=== PATIENT | male | born 1985 | race Caucasian/White ===

== ENCOUNTER 2019-05-22 10:50 | Outpatient (CLI) | payer OTHER, SELFPAY ==
[2019-05-22 11:00] VITALS: BP 122/78; PULSE 68; RESP 20; TEMP 36.9; O2SAT 95
[2019-05-22 11:45] VITALS: BP 123/77; PULSE 70; RESP 20
[2019-05-22 12:15] VITALS: BP 122/74; PULSE 72; RESP 20
== END 2019-05-22 12:15 | disposition home or self-care (01) ==
PROVIDERS: Visit Provider Internal Medicine Infectious Disease
DX: I38 Endocarditis, valve unspecified (principal)
CPT/HCPCS: 96365; J0878

== ENCOUNTER 2019-05-23 10:40 | Outpatient (CLI) | payer OTHER, SELFPAY ==
[2019-05-23 11:10] VITALS: BP 135/79; PULSE 85; RESP 18; O2SAT 99
[2019-05-23 12:35] VITALS: BP 141/88; PULSE 86; RESP 18; O2SAT 100
== END 2019-05-23 12:38 | disposition home or self-care (01) ==
LOC: INF 10:46
PROVIDERS: Visit Provider Internal Medicine Infectious Disease
DX: I38 Endocarditis, valve unspecified (principal)
CPT/HCPCS: 96365; 96367; J0878

== ENCOUNTER 2019-05-24 10:53 | Outpatient (CLI) | payer OTHER, SELFPAY ==
[2019-05-24 12:39] VITALS: BP 132/80; PULSE 85; RESP 18; TEMP 36.7; O2SAT 97
--- NOTE | 2019-05-24 16:39 | PC.NURSE ---
05/24/19 1155 Attempts x4 total, 2 per Meir,MEKHI and 2 per MEKHI Neal, to start IV for Cubicin and Rocephin IV infusion. Unable to obtain IV access. Pt does not want to be stuck again for IV access and wants to change antibiotics to IM/oral. Will notify Dr. Clemens of pt wishes. [address] Clemens via phone regarding pt wishes to discontinue IV antibiotics. Order given to start Bactrim DS 1 tablet po BID for 3 months, and Invanz 1 gram IM daily x 4 weeks. 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 Pt will receive Invanz 1 gram IM per [facility] outpatient infusion dept.
== END 2019-05-24 13:10 | disposition home or self-care (01) ==
LOC: INF 10:53
PROVIDERS: Visit Provider Internal Medicine Infectious Disease
DX: I38 Endocarditis, valve unspecified (principal)
CPT/HCPCS: 96372; J1335

== ENCOUNTER 2019-05-25 11:10 | Outpatient (CLI) | payer OTHER, SELFPAY ==
[2019-05-25 11:29] VITALS: BP 143/95; PULSE 88; RESP 20; TEMP 36.4; O2SAT 100
[2019-05-25 11:30] VITALS: BP 143/95; PULSE 88; RESP 20; TEMP 36.4; O2SAT 100
--- NOTE | 2019-05-25 11:30 | PC.NURSE ---
Invanz 1 Gram IM given, 500mg bilateral gluteus juliette. pt hermila well. no problems noted.
== END 2019-05-25 11:30 | disposition home or self-care (01) ==
LOC: INF 11:10
PROVIDERS: Visit Provider Internal Medicine Infectious Disease
DX: I38 Endocarditis, valve unspecified (principal)
CPT/HCPCS: 96372; 96374; J1335

== ENCOUNTER 2019-05-26 11:06 | Outpatient (CLI) | payer OTHER, SELFPAY ==
[2019-05-26 11:30] VITALS: BP 117/65; PULSE 76; RESP 18
== END 2019-05-26 11:50 | disposition home or self-care (01) ==
LOC: INF 11:07
PROVIDERS: Visit Provider Internal Medicine Infectious Disease
DX: I38 Endocarditis, valve unspecified (principal)
CPT/HCPCS: 96372; J1335

== ENCOUNTER → 2019-05-27 10:56 | Outpatient (CLI) | payer OTHER, SELFPAY ==
[2019-05-27 11:07] VITALS: BP 122/81; PULSE 83; RESP 16; TEMP 36.7; O2SAT 99
== END ==
PROVIDERS: Visit Provider Internal Medicine Infectious Disease
DX: I38 Endocarditis, valve unspecified (principal)
CPT/HCPCS: 96372; J1335

== ENCOUNTER 2019-05-28 11:03 | Outpatient (CLI) | payer OTHER, SELFPAY ==
[2019-05-28 11:25] VITALS: BP 147/89; PULSE 103; RESP 18; O2SAT 99
[2019-05-28 11:38] LABS: Anion Gap 15.1 mEq/L (5-15); Blood Urea Nitrogen 18 mg/dL (7-18); Calcium 9.2 mg/dL (8.5-10.1); Carbon Dioxide 25 mmol/L (21.0-32.0); Chloride 101 mmol/L (98-107); Creatinine,Serum 1.09 mg/dL (0.70-1.30); Estimated Glomerular Filt Rate 78 ml/min (>60); GFR (African American) 94 ML/MIN (>60); Glucose 116 mg/dL (74-106); Potassium 4.1 mmoL/L (3.5-5.1); Sodium 137 mmol/L (136-145)
== END 2019-05-28 11:40 | disposition home or self-care (01) ==
LOC: INF 11:03
PROVIDERS: Internal Medicine Infectious Disease; Visit Provider Internal Medicine Infectious Disease
DX: I38 Endocarditis, valve unspecified
CPT/HCPCS: 80048; 96372; J1335

== ENCOUNTER 2019-05-29 11:10 | Outpatient (CLI) | payer OTHER, SELFPAY ==
[2019-05-29 11:25] VITALS: BP 133/92; PULSE 105; RESP 20; TEMP 36.7; O2SAT 97
== END 2019-05-29 11:45 | disposition home or self-care (01) ==
LOC: INF 11:10
PROVIDERS: Visit Provider Internal Medicine Infectious Disease
DX: I38 Endocarditis, valve unspecified (principal)
CPT/HCPCS: 96372; J1335

== ENCOUNTER → 2019-05-29 17:35 | Outpatient (CLI) | payer OTHER, SELFPAY ==
[2019-05-29 19:34] LABS: Amphetamine/Metha Screen,Urine Negative ng/mL (<1000); Barbiturates Screen,Urine Negative ng/mL (<200); Benzodiazepines Screen,Urine Negative ng/mL (<200); Cannabinoid Screen,Urine Negative ng/mL (<50); Cocaine Screen,Urine Negative ng/mL (<300); Methadone Screen,Urine Negative ng/mL (<300); Opiate Screen,Urine Positive ng/mL (<300); Phencyclidine Screen,Urine Negative ng/mL (<25)
== END ==
PROVIDERS: Visit Provider Nurse Practitioner Family
DX: G89.29 Other chronic pain (principal)
CPT/HCPCS: 80305

== ENCOUNTER 2019-05-30 09:15 | Outpatient (CLI) | payer OTHER, SELFPAY ==
[2019-05-30 09:37] VITALS: BP 141/95; PULSE 105; RESP 18; O2SAT 98
== END 2019-05-30 10:00 | disposition home or self-care (01) ==
LOC: INF 09:16
PROVIDERS: Visit Provider Internal Medicine Infectious Disease
DX: I38 Endocarditis, valve unspecified (principal)
CPT/HCPCS: 96372; J1335

== ENCOUNTER → 2019-06-03 10:48 | Outpatient (CLI) | payer OTHER, SELFPAY ==
[2019-06-03 10:58] VITALS: BP 131/84; PULSE 97; RESP 16; TEMP 36.6; O2SAT 98; BMI 26.6
== END ==
PROVIDERS: Visit Provider Internal Medicine Infectious Disease
DX: I38 Endocarditis, valve unspecified (principal)
CPT/HCPCS: 96372; J1335

== ENCOUNTER 2019-06-04 11:12 | Outpatient (CLI) | payer OTHER, SELFPAY ==
[2019-06-04 11:29] VITALS: BP 128/69; PULSE 90; RESP 18; TEMP 36.6; O2SAT 97
--- NOTE | 2019-06-04 11:44 | PC.NURSE ---
06/04/19 1129 Invanz 1gm IM given, 500mg L gluteus juliette, 500mg R gluteus juliette. Pt hermila well. No problems noted
== END 2019-06-04 11:40 | disposition home or self-care (01) ==
LOC: INF 11:12
PROVIDERS: Visit Provider Internal Medicine Infectious Disease
DX: I38 Endocarditis, valve unspecified (principal)
CPT/HCPCS: 96372; J1335

== ENCOUNTER 2019-06-05 11:12 | Outpatient (CLI) | payer OTHER, SELFPAY ==
[2019-06-05 11:23] VITALS: BP 150/100; PULSE 89; RESP 20; TEMP 37.2; O2SAT 97
[2019-06-05 11:25] VITALS: BP 150/100; PULSE 89; RESP 20; TEMP 37.2; O2SAT 97
== END 2019-06-05 11:26 | disposition home or self-care (01) ==
LOC: INF 11:12
PROVIDERS: Visit Provider Internal Medicine Infectious Disease
DX: I38 Endocarditis, valve unspecified (principal)
CPT/HCPCS: 96372; J1335

== ENCOUNTER 2019-06-06 10:56 | Outpatient (CLI) | payer OTHER, SELFPAY ==
[2019-06-06 11:30] VITALS: BP 150/98; PULSE 100; RESP 18; O2SAT 98
== END 2019-06-06 11:30 | disposition home or self-care (01) ==
LOC: INF 10:56
PROVIDERS: Visit Provider Internal Medicine Infectious Disease
DX: I38 Endocarditis, valve unspecified (principal)
CPT/HCPCS: 96372; J1335

== ENCOUNTER 2019-06-07 10:59 | Outpatient (CLI) | payer OTHER, SELFPAY ==
[2019-06-07 11:25] VITALS: BP 137/88; PULSE 93; RESP 18; TEMP 36.7; O2SAT 99
== END 2019-06-07 11:40 | disposition home or self-care (01) ==
LOC: INF 10:59
PROVIDERS: Visit Provider Internal Medicine Infectious Disease
DX: I38 Endocarditis, valve unspecified (principal)
CPT/HCPCS: 96372; J1335

== ENCOUNTER 2019-06-08 10:55 | Outpatient (CLI) | payer OTHER, SELFPAY ==
[2019-06-08 11:12] VITALS: BP 136/98; PULSE 108; RESP 18; TEMP 36.7; O2SAT 98
== END 2019-06-08 11:12 | disposition home or self-care (01) ==
LOC: INF 11:09
PROVIDERS: Visit Provider Internal Medicine Infectious Disease
DX: I38 Endocarditis, valve unspecified (principal)
CPT/HCPCS: 96372; J1335

== ENCOUNTER 2019-06-09 11:06 | Outpatient (CLI) | payer OTHER, SELFPAY ==
[2019-06-09 11:15] VITALS: BP 150/80; PULSE 89; RESP 18
== END 2019-06-09 11:16 | disposition home or self-care (01) ==
PROVIDERS: PCP Emergency Medicine; Visit Provider Internal Medicine Infectious Disease
DX: I38 Endocarditis, valve unspecified (principal)
CPT/HCPCS: 96372; J1335

== ENCOUNTER → 2019-06-10 11:06 | Outpatient (CLI) | payer OTHER, SELFPAY ==
[2019-06-10 11:17] VITALS: BP 117/82; PULSE 76; RESP 16
== END ==
PROVIDERS: PCP Emergency Medicine; Visit Provider Internal Medicine Infectious Disease
DX: I38 Endocarditis, valve unspecified (principal)
CPT/HCPCS: 96372; J1335

== ENCOUNTER 2019-06-11 11:07 | Outpatient (CLI) | payer OTHER, SELFPAY ==
[2019-06-11 11:09] VITALS: BP 154/107; PULSE 109; RESP 20; O2SAT 96
== END 2019-06-11 11:13 | disposition home or self-care (01) ==
LOC: INF 11:08
PROVIDERS: Visit Provider Internal Medicine Infectious Disease
DX: I38 Endocarditis, valve unspecified (principal)
CPT/HCPCS: 96372; J1335

== ENCOUNTER 2019-06-12 11:15 | Outpatient (CLI) | payer OTHER, SELFPAY ==
[2019-06-12 11:25] VITALS: BP 128/76; PULSE 87; RESP 20; TEMP 36.7; O2SAT 98
== END 2019-06-12 11:40 | disposition home or self-care (01) ==
LOC: INF 11:16
PROVIDERS: Visit Provider Internal Medicine Infectious Disease
DX: I38 Endocarditis, valve unspecified (principal)
CPT/HCPCS: 96372; J1335

== ENCOUNTER 2019-06-13 11:05 | Outpatient (CLI) | payer OTHER, SELFPAY ==
[2019-06-13 11:05] VITALS: BP 138/92; PULSE 98; RESP 18; O2SAT 98
== END 2019-06-13 11:20 | disposition home or self-care (01) ==
LOC: INF 11:09
PROVIDERS: Visit Provider Internal Medicine Infectious Disease
DX: I38 Endocarditis, valve unspecified (principal)
CPT/HCPCS: 96372; J1335

== ENCOUNTER 2019-06-14 11:10 | Outpatient (CLI) | payer OTHER, SELFPAY ==
[2019-06-14 11:30] VITALS: BP 129/74; PULSE 75; RESP 18; TEMP 36.6; O2SAT 98
== END 2019-06-14 11:30 | disposition home or self-care (01) ==
LOC: INF 11:10
PROVIDERS: Visit Provider Internal Medicine Infectious Disease
DX: I38 Endocarditis, valve unspecified (principal)
CPT/HCPCS: 96372; J1335

== ENCOUNTER 2019-06-15 12:45 | Outpatient (CLI) | payer OTHER, SELFPAY ==
[2019-06-15 13:25] VITALS: BP 147/93; PULSE 90; RESP 18; O2SAT 96
== END 2019-06-15 13:30 | disposition home or self-care (01) ==
LOC: INF 12:49
PROVIDERS: Visit Provider Internal Medicine Infectious Disease
DX: I38 Endocarditis, valve unspecified (principal)
CPT/HCPCS: 96372; J1335

== ENCOUNTER → 2019-06-16 22:07 | Outpatient (CLI) | payer OTHER, SELFPAY ==
[2019-06-16 22:21] VITALS: BP 146/74; PULSE 103; RESP 17; TEMP 36.8; O2SAT 99; BMI 28.6
--- NOTE | 2019-06-16 23:35 | PC.NURSE ---
pharmacy diabetes education coordinator consulted for medication order and administration. Invanz 1 gram with lidocaine 1%. 3.2 ml of lidocaine in Invanz 1 gram vial. 1.8 ml x2 syringes. Medication also verified with Regina Rios RN. Medication administered in (L) and (R) gluteus medius @ [id number]. Pt tolerated well.
== END ==
PROVIDERS: PCP Emergency Medicine; Visit Provider Internal Medicine Infectious Disease
DX: I38 Endocarditis, valve unspecified (principal)
CPT/HCPCS: 96372; G0463; J1335

== ENCOUNTER 2022-10-10 17:50 | Emergency (ER) | payer MEDICAID, SELFPAY ==
[2022-10-10 18:50] VITALS: BP 136/85; PULSE 89; RESP 16; TEMP 36.7; O2SAT 96; BMI 31.7
--- NOTE | 2022-10-10 19:31 | ED_ITS ---
Discharge Plan Disposition Chief Complaint: PAIN Referrals Follow up/Referrals: Provider,Keshia, [Primary Care Provider] - See instructions Discharge ED Provider: Kerry Odell Adult HPI General Chief complaint: PAIN Stated complaint: surg 10/07 hand pain Mode of Arrival: Ambulatory Source of Information: Patient Limitations: No Limitations Description of Symptoms (Recalled from ER Triage Doc. by RN): Pt reports having a carpel tunnel sx on his right hand . His complaint is 7 out of 10 burning pain in his right palm and he has ran out of pain medication they gave him after sx. Sx was performed by [facility]. Pt denies any drainage, fevers, or N/V/D. Pt reports taking off his bandage today because he thought he tore on of the stiches out. Pt has not contacted [place] [facility]. Related Data Allergies Allergy/AdvReac Type Severity Reaction Status Date / Time meloxicam [From Mobic] AdvReac Intermediate Abdominal Verified 06/12/19 14:32 Pain methocarbamol [From Robaxin] AdvReac Mild Abdominal Verified 06/12/19 14:32 Pain PFSH PFSH Disclaimer: The information contained in this section may have been updated after the patient was seen, as this information can be updated by other users. Social History Smoking Status: Current every day smoker tobacco type: cigarettes packs per day: 1 alcohol intake: never substance use type: former substance user, heroin, IV drugs and methamphetamine current occupational status: unemployed Travel in the last 8 weeks: None Medical Decision Making Vital Signs: 10/10/22 18:50 Temperature 98.1 F Temperature Source Oral Pulse Rate [Right Radial] 89 Respiratory Rate 16 Blood Pressure [Left Arm] 136/85 Blood Pressure Mean [Left Arm] 102 Blood Pressure Source [Left Arm] Automatic Cuff Blood Pressure Position [Left Arm] Sitting 02 Sat by Pulse Oximetry 96 Oxygen Delivery Method Room Air Critical Care Time Critical Care Time Attestation: On 10/10/22, the high probability of a clinically significant, sudden or life threatening deterioration of the following system(s) required my full and direct attention, intervention and personal management. The time I documented below is in addition to time spent performing reported procedures but includes the following listed in this critical care notation.
--- NOTE | 2022-10-10 20:15 | XR_ITS ---
PROCEDURE INFORMATION: Exam: XR Right Hand Exam date and time: 10/10/2022 8:13 PM Age: 37 years old Clinical indication: Prior surgery; Surgery date: 3-7 days post-operative; Surgery type: Patient had right hand surgery on (3 days ago). He has run out of pain medicine. He came to er to get more pain medicine he stated. TECHNIQUE: Imaging protocol: Radiologic exam of the Right hand. Views: 3 or more views. COMPARISON: No relevant prior studies available. FINDINGS: Bones/joints: Normal. No fracture or malalignment. Joint surfaces preserved. Soft tissues: Normal. IMPRESSION: Negative examination right hand.
--- NOTE | 2022-10-10 20:27 | HMH.EDGENADL ---
Discharge Plan Disposition Patient Disposition: Home, Self-Care Chief Complaint: PAIN Referrals Follow up/Referrals: Provider,Referral, [Primary Care Provider] - See instructions Clinical Impressions Clinical Impression: Post-op pain Instructions Patient Instructions: DI for Acute Pain -- Adult Discharge ED Provider: Joshua Russell General Adult HPI General Chief complaint: PAIN Stated complaint: surg 10/07 hand pain Time Seen by Provider: 10/10/22 20:27 Mode of Arrival: Ambulatory Source of Information: Patient and Medical Record Limitations: No Limitations Description of Symptoms (Recalled from ER Triage Doc. by RN): Pt reports having a carpel tunnel sx on his right hand . His complaint is 7 out of 10 burning pain in his right palm and he has ran out of pain medication they gave him after sx. Sx was performed [place] [facility]. Pt denies any drainage, fevers, or N/V/D. Pt reports taking off his bandage today because he thought he tore on of the stiches out. Pt has not contacted [facility]. History of Present Illness HPI narrative: pt with recent carpel tunnel surg rt wrist - has ongoing pain and used all pain meds - solo report reviewed Onset (ago): day(s) Location: upper extremity Severity: moderate Associated symptoms: denies other symptoms Related Data Allergies Allergy/AdvReac Type Severity Reaction Status Date / Time meloxicam [From Mobic] AdvReac Intermediate Abdominal Verified 06/12/19 14:32 Pain methocarbamol [From Robaxin] AdvReac Mild Abdominal Verified 06/12/19 14:32 Pain PFSH PFSH Disclaimer: The information contained in this section may have been updated after the patient was seen, as this information can be updated by other users. Social History Smoking Status: Current every day smoker tobacco type: cigarettes packs per day: 1 alcohol intake: never substance use type: former substance user, heroin, IV drugs and methamphetamine current occupational status: unemployed Travel in the last 8 weeks: None ROS Obtained: Yes All systems reviewed & no additional complaints except as documented Physical Exam General General appearance: alert Head Head exam: normocephalic Eye Eye exam: Present PERRL and EOMI ENT ENT exam: Present mucous membranes moist Neck Neck exam: Present trachea midline Respiratory Respiratory exam: Absent respiratory distress Cardiovascular Cardiovascular exam: Present regular rate Expanded Upper Extremity Exam Right: Forearm/Wrist exam: Present tenderness and other (no clinical evid of infection and sutures intact ); Absent full ROM or swelling Neuromotor exam: Normal wrist extension Vascular exam: Normal radial pulse Neurological Exam Neurological exam: Present alert, oriented X3 and CN II-XII intact Psychiatric Psychiatric exam: Present normal affect Skin Skin exam: Absent rash Medical Decision Making Medical Records Medical records reviewed: Yes I reviewed the patient's medical records. Solo Inquiry Pt receiving controlled substance: No Vital Signs: 10/10/22 18:50 Temperature 98.1 F Temperature Source Oral Pulse Rate [Right Radial] 89 Respiratory Rate 16 Blood Pressure [Left Arm] 136/85 Blood Pressure Mean [Left Arm] 102 Blood Pressure Source [Left Arm] Automatic Cuff Blood Pressure Position [Left Arm] Sitting 02 Sat by Pulse Oximetry 96 Oxygen Delivery Method Room Air Orders (Tests/Meds): ED MEDICATIONS Generic Name Dose Route Start Last Admin Trade Name Freq PRN Reason Stop Dose Admin Ketorolac Tromethamine 60 mg 10/10/22 20:23 Ketorolac 60mg/2ml Vial IM 10/10/22 20:24 ONCE ONE ORDERS Category Date Time Status XR hand RT min 3V Stat Exams 10/10/22 20:15 Taken Radiology Data #1: Image(s): Wrist Image Reviewed: Yes I reviewed the patient's radiology image Preliminary Findings: No Fracture Seen Medical Decision Narrative: pt
[2022-10-10 20:31] VITALS: BP 134/93; PULSE 78; RESP 14; TEMP 36.6; O2SAT 99
--- NOTE | 2022-10-10 20:39 | PC.NURSE ---
Right hand cleaned and wrapped with sterile 4x4, kerlex, and dimitri wrap.
== END 2022-10-10 20:39 | disposition home or self-care (01) ==
PROVIDERS: Emergency Provider Emergency Medicine
DX: G89.18 Other acute postprocedural pain (principal); M79.641 Pain in right hand
CPT/HCPCS: 73130; 99283